=== PATIENT | female | born 1960 | race Caucasian/White ===

== ENCOUNTER 2016-11-22 19:05 | Emergency (ER) | payer MEDICARE, OTHER ==
[~2016-11-22] VITALS: Ht 162.6 cm; Wt 45.0 kg
[~2016-11-22 19:05] MED LIST: DIVA500T PO; LEVEMIR SQ; RISP1 PO; RISP25P IM
[2016-11-22 19:24] VITALS: BP 121/98; PULSE 77; RESP 18; TEMP 98.2; O2SAT 99
--- NOTE | 2016-11-22 19:53 | PD ---
HPI Chief Complaint: Psychiatric Symptoms Time Seen by Provider: 19:49 Travel History International Travel<30 days: No Contact w/Intl Traveler<30days: No Traveled to known affect area: No History of Present Illness HPI 56-year-old female with history of bipolar, schizophrenia presents to the ED under [place] act for evaluation of erratic behavior. Paperwork accompanying the patient states that [place], torn up magazines on the floor, advised the officer on scene that she wanted to kill herself. There is also some concern that the patient's significant other keeps medicine from her. This was confirmed by witnesses on the scene. On presentation the patient is mumbling erratically, occasionally responding to questioning. She is unable to provide any meaningful history. Review of the record reveals that the patient was admitted 09/12/16 or manic episode, discharged 09/25/16. PFSH Past Medical History Medical History: Unable to Obtain Arthritis: Yes Blood Disorders: No Bipolar Disorder: Yes Anxiety: Yes Depression: Yes Diabetes: Yes Patient Takes Glucophage: No (UNABLE TO OBTAIN) Diminished Hearing: No Endocrine: No Gastrointestinal Disorders: No Genitourinary: No Immune Disorder: No Musculoskeletal: Yes Psychiatric: Yes Reproductive: No Respiratory: No Immunizations Current: Yes ?: Not Menopausal: Yes Ectopic : No Past Surgical History Surgical History: Unable to Obtain Abdominal Surgery: No AICD: No Arteriovenous Shunt: No Cardiac Surgery: No Ear Surgery: No Endocrine Surgery: No Eye Surgery: No Genitourinary Surgery: No Gynecologic Surgery: No Insulin Pump: No Joint Replacement: No Neurologic Surgery: No Oral Surgery: No Pacemaker: No Thoracic Surgery: No Other Surgery: Yes (CYST REMOVED R AXILLA) Social History Alcohol Use: No (UNABLE TO OBTAIN) Tobacco Use: Yes (UNABLE TO OBTAIN) Substance Use: No (UNABLE TO OBTAIN) Allergies-Medications (Allergen,Severity, Reaction): Coded Allergies: Penicillin (Verified Allergy, Severe, NOT SURE, 11/22/16) Metformin (Verified Adverse Reaction, Intermediate, diarrhea, 11/22/16) Reported Meds & Prescriptions Reported Meds & Active Scripts Active Risperdal Consta Inj (Risperidone) 25 Mg Inj 25 Mg IM Q14D Next dose of Risperdal Consta due on 10/09/16. Risperdal (Risperidone) 1 Mg Tab 1.5 Mg PO Q12HR 15 Days Continue taking oral Risperdal for at least 3 weeks, or as directed by your outpatient mental health provider. Be sure to get your next Risperdal Consta Injection. Levemir Inj (Insulin Detemir) 1,000 unit/ 10 ML Vial 20 Units SQ Q12HR [address] (Divalproex Sodium) 500 Mg Tabdr 500 Mg PO BID 15 Days Review of Systems ROS Limitations: Psychotic (unable to obtain any meaningful history or review of systems) Physical Exam Narrative GENERAL: Well-nourished, well-developed thin, white female appearing much younger than her stated age in no acute distress SKIN: Warm and dry. There is a 2-3 cm lesion on the radial aspect of the left forearm consistent with basal cell carcinoma. HEAD: Normocephalic. Atraumatic. No tenderness to palpation. No bony step- offs. EYES: No scleral icterus. No injection or drainage. PERRLA. EOMI. ENT: Pearly zheng tympanic membranes bilaterally. Nasal mucosa is moist. Oropharynx without erythema, edema or exudate. DENTAL: Poor dentition, multiple missing teeth.. NECK: Supple, trachea midline. No JVD or lymphadenopathy. CARDIOVASCULAR: Regular rate and rhythm without murmurs, gallops, or rubs. 2+ DP and radial pulses bilaterally. RESPIRATORY: Breath sounds clear and equal bilaterally. No accessory muscle use. GASTROINTESTINAL: Abdomen soft, non-tender, nondistended. + Bowel sounds MUSCULOSKELETAL: No cyanosis, or edema. BACK: Nontender without obvious deformity. No CVA tenderness. Data Data Last Documented VS Vital Signs Date Time Temp Pulse Resp B/P Pulse Ox O2 Delivery O2 Flow Rate FiO2 11/22/16 19:25 76 20 11/22/16 19:24 98.2 121/98 99 Orders Complete Blood Count With Diff (11/22/16 19:18) Comprehensive Metabolic Panel (11/22/16 19:18) Psych Screen (11/22/16 19:18) Alcohol (Ethanol) (11/22/16 19:18) Urinalysis - C+S If Indicated (11/22/16 19:25) Ed Urine Pregnancytest Poc (11/22/16 19:25) Drug Screen, Random Urine (11/22/16 19:25) Valproic Acid (Depakene) (11/22/16 19:47) Labs Laboratory Tests Test 11/22/16 11/22/16 19:34 20:36 White Blood Count 6.0 TH/MM3 Red Blood Count 4.46 MIL/MM3 Hemoglobin 13.2 GM/DL Hematocrit 38.3 % Mean Corpuscular Volume 85.9 FL Mean Corpuscular Hemoglobin 29.5 PG Mean Corpuscular Hemoglobin 34.4 % Concent Red Cell Distribution Width 13.2 % Platelet Count 198 TH/MM3 Mean Platelet Volume 8.1 FL Neutrophils (%) (Auto) 64.0 % Lymphocytes (%) (Auto) 25.0 % Monocytes (%) (Auto) 8.4 % Eosinophils (%) (Auto) 1.6 % Basophils (%) (Auto) 1.0 % Neutrophils # (Auto) 3.8 TH/MM3 Lymphocytes # (Auto) 1.5 TH/MM3 Monocytes # (Auto) 0.5 TH/MM3 Eosinophils # (Auto) 0.1 TH/MM3 Basophils # (Auto) 0.1 TH/MM3 CBC Comment DIFF FINAL Differential Comment Sodium Level 144 MEQ/L Potassium Level 3.8 MEQ/L Chloride Level 108 MEQ/L Carbon Dioxide Level 27.0 MEQ/L Anion Gap 9 MEQ/L Blood Urea Nitrogen 27 MG/DL Creatinine 1.06 MG/DL Estimat Glomerular Filtration 54 ML/MIN Rate Random Glucose 146 MG/DL Calcium Level 9.8 MG/DL Total Bilirubin 0.7 MG/DL Aspartate Amino Transf 8 U/L (AST/SGOT) Alanine Aminotransferase 15 U/L (ALT/SGPT) Alkaline Phosphatase 62 U/L Total Protein 7.0 GM/DL Albumin 3.6 GM/DL Ethyl Alcohol Level LESS THAN 3 MG/DL Urine Color YELLOW Urine Turbidity CLEAR Urine pH 5.5 Urine Specific [place] 1.015 Urine Protein NEG mg/dL Urine Glucose (UA) NEG mg/dL Urine Ketones 40 mg/dL Urine Occult Blood NEG Urine Nitrite NEG Urine Bilirubin NEG Urine Urobilinogen LESS THAN 2.0 MG/DL Urine Leukocyte Esterase NEG Urine RBC LESS THAN 1 /hpf Urine WBC 2 /hpf Urine Squamous Epithelial <1 /hpf Cells Microscopic Urinalysis Comment CULT NOT INDICATED Urine Opiates Screen NEG Urine Barbiturates Screen NEG Urine Amphetamines Screen NEG Urine Benzodiazepines Screen NEG Urine Cocaine Screen NEG Urine Cannabinoids Screen NEG MDM Medical Decision Making Medical Screen Exam Complete: Yes Emergency Medical Condition: Yes Differential Diagnosis Adjustment disorder versus anxiety versus bipolar versus depression versus dementia versus electrolyte disorder versus malingering versus mood disorder versus ODD versus psychosis versus PTSD versus schizophrenia versus schizoaffective disorder versus substance-induced mood disorder versus other Narrative Course 56-year-old female with history of bipolar, schizophrenia presents to the ED under [place] act for evaluation of erratic behavior. Paperwork accompanying the patient states that she was sitting [place], torn up magazines on the floor, advised the officer on scene that she wanted to kill herself. There is also some concern that the patient's significant other keeps medicine from her. This was confirmed by witnesses on the scene. On presentation the patient is mumbling erratically, occasionally responding to questioning. She is unable to provide any meaningful history. Review of the record reveals that the patient was admitted 09/12/16 or manic episode, discharged 09/25/16. Vitals reviewed. Physical exam reveals a white female, appearing much older than her stated age. He is mumbling to herself nonstop. She occasionally responds appropriately to questioning. No focal neuro deficits. Chest clear to auscultation, abdomen soft, nontender. No swelling of the extremities. CVA tenderness. CBC unremarkable. CMP evidence of dehydration, otherwise unremarkable. UA no culture indicated Tox screen: Negative Alcohol: Less than 3. Valproic acid pending While waiting for lab results the patient is observed to be removing her clothes , attempting to walk from her room. She is easily redirected. Patient is medically cleared for psychiatric evaluation. Please psychiatric notes for disposition. Diagnosis Primary Impression: Medical clearance for psychiatric admission Charlene Lnyn Nov 22, 2016 19:53
[2016-11-22 20:47] LABS: AUTOMATED NEUTROPHIL # 3.8 TH/MM3 (1.8-7.7); BASOPHIL # 0.1 TH/MM3 (0-0.2); EOSINOPHIL # 0.1 TH/MM3 (0-0.4); EOSINOPHIL % 1.6 % (0.0-4.0); HEMATOCRIT 38.3 % (35.0-46.0); HEMO FLAGS DIFF FINAL; LYMPHOCYTE # 1.5 TH/MM3 (1.0-4.8); MEAN CELL VOLUME 85.9 FL (80.0-100.0); MEAN CORPUSCULAR HEMOGLOBIN 29.5 PG (27.0-34.0); MEAN CORPUSCULAR HGB CONC 34.4 % (32.0-36.0); MONO % 8.4 % (0.0-8.0); PLATELET COUNT 198 TH/MM3 (150-450); RED BLOOD COUNT 4.46 MIL/MM3 (4.00-5.30); RED CELL DISTRIBUTION WIDTH 13.2 % (11.6-17.2)
[2016-11-22 20:51] LABS: BLOOD, URINE NEG (NEG); COMMENT (UR) CULT NOT INDICATED; CULTURE IF INDICATED CULT NOT INDICATED; GLUCOSE,URINE NEG (NEG); KETONE, URINE 40 mg/dL (NEG); NITRITE,URINE NEG (NEG); PH, URINE 5.5 (5.0-8.5); SQUAMOUS EPITHELIAL CELL URINE <1 /hpf (0-5); URINE COLOR YELLOW (YELLW/STRAW)
[2016-11-22 20:55] LABS: AMPHETAMINE, URINE NEG (NEG); BARBITURATES, URINE NEG (NEG); COCAINE, URINE NEG (NEG)
[2016-11-22 21:16] LABS: ANION GAP 9 MEQ/L (5-15)
[2016-11-22 21:19] LABS: ALKALINE PHOSPHATASE 62 U/L (45-117); ALT (GPT) 15 U/L (10-53); AST (GOT) 8 U/L (15-37); BLOOD UREA NITROGEN 27 MG/DL (7-18); CHLORIDE 108 MEQ/L (98-107); GLOMERULAR FILTRATION RATE 54 ML/MIN (>89); POTASSIUM 3.8 MEQ/L (3.5-5.1); SODIUM (NA) 144 MEQ/L (136-145); TOTAL BILIRUBIN ADULT 0.7 MG/DL (0.2-1.0)
[2016-11-22] MEDS ORDERED: HALOPERIDOL LACTATE 5 MG/ML AMP IM ONE (21:45)
[2016-11-22] MEDS ORDERED: RISP12.5 IM (22:32)
[2016-11-22 23:00] VITALS: BP 116/66; PULSE 64; RESP 18
[2016-11-23 02:43] VITALS: BP 157/90; PULSE 75; RESP 19; O2SAT 98
[2016-11-23 06:11] VITALS: BP 142/90; PULSE 70; RESP 18; O2SAT 98
[2016-11-23] MEDS ORDERED: LORazepam 0.5 MG TAB PO ONE (09:45)
[2016-11-23 10:20] VITALS: BP 120/63; PULSE 77; RESP 18; O2SAT 99
[2017-01-21] MEDS ORDERED: [UNRECOGNIZED DRUG - CODE] (11:46)
[2017-01-21] MEDS ORDERED: LEVEMIR SQ (11:46)
[2017-01-21] MEDS ORDERED: [UNRECOGNIZED DRUG - CODE] SQ (21:06)
[2017-04-08] MEDS ORDERED: MAGICADU2 SWISH-SWAL (14:10)
== END 2016-11-23 11:19 ==
LOC: NEPA 19:05 → NEPJ 11-23 11:19
DX: F20.9 Schizophrenia, unspecified (principal); F31.9 Bipolar disorder, unspecified; E86.0 Dehydration
CPT/HCPCS: 80053; 80164; 80307; 80320; 81001; 84703; 85025; 96372; 99284; J1630